=== PATIENT | male | born 1970 | race Hispanic/Latino ===

== ENCOUNTER 2020-10-23 09:42 | Outpatient (CLI) | payer OTHER ==
--- NOTE | 2020-10-23 11:24 | XRay Report ---
Lumbar spine 3 views INDICATION: Back pain FINDINGS: Mild endplate change and facet changes of the lumbar spine. Sacrum and sacroiliac joints ap pear normal. No acute fracture. Signer Name: Artie Angel MD Signed: 10/23/2020 11:20 AM Workstation Name: [id number]
--- NOTE | 2020-10-23 11:41 | XRay Report ---
Bilateral hands 4 views INDICATION: Hand pain FINDINGS: MCP joints and IP joints appear normal. No erosive or destructive changes in either hand. N o acute findings. Signer Name: Artie Angel MD Signed: 10/23/2020 11:36 AM Workstation Name: [id number]
== END 2020-10-23 09:43 | disposition home or self-care (01) ==
LOC: EDBD 09:42 → XRAY 09:42
PROVIDERS: ATTEND Internal Medicine
DX: M19.041 Primary osteoarthritis, right hand (principal); M19.042 Primary osteoarthritis, left hand; M54.9 Dorsalgia, unspecified; M53.82 Other specified dorsopathies, cervical region; M65.30 Trigger finger, unspecified finger
CPT/HCPCS: 72100

== ENCOUNTER 2021-09-08 11:13 | Outpatient (CLI) | payer OTHER ==
--- NOTE | 2021-09-08 13:11 | XRay Report ---
XR spine lumbosacral 2-3V, XR spine thoracic 2V INDICATION / CLINICAL INFORMATION: Z02.71 ENCOUNTER FOR DISABILITY DETERMINATION. COMPARISON: 10/23/2020 FINDINGS: Thoracic spine: Mild right convex curvature of the thoracic spine. Alignment is normal. Moderate mult ilevel discogenic degenerative changes throughout the thoracic spine. Mild stable anterior wedging of T12. Vertebral body heights are otherwise preserved. There is no evidence of acute fracture. Soft ti ssues are unremarkable. Visualized lungs are clear. Lumbar spine: Lumbar spinal alignment is normal. Vertebral body heights are maintained. No evidence o f fracture. Scattered discogenic degenerative changes throughout the lumbar spine with mild disc spac e height loss at L5-S1. There is [id number] lower lumbar facet arthropathy. IMPRESSION: Multilevel thoracolumbar spondylosis, as above. No evidence of acute process. Signer Name: Shantanu Manzanares MD Signed: 09/08/2021 1:07 PM Workstation Name: [id number]
--- NOTE | 2021-09-08 13:11 | XRay Report ---
XR spine lumbosacral 2-3V, XR spine thoracic 2V INDICATION / CLINICAL INFORMATION: Z02.71 ENCOUNTER FOR DISABILITY DETERMINATION. COMPARISON: 10/23/2020 FINDINGS: Thoracic spine: Mild right convex curvature of the thoracic spine. Alignment is normal. Moderate mult ilevel discogenic degenerative changes throughout the thoracic spine. Mild stable anterior wedging of T12. Vertebral body heights are otherwise preserved. There is no evidence of acute fracture. Soft ti ssues are unremarkable. Visualized lungs are clear. Lumbar spine: Lumbar spinal alignment is normal. Vertebral body heights are maintained. No evidence o f fracture. Scattered discogenic degenerative changes throughout the lumbar spine with mild disc spac e height loss at L5-S1. There is [id number] lower lumbar facet arthropathy. IMPRESSION: Multilevel thoracolumbar spondylosis, as above. No evidence of acute process. Signer Name: Shantanu Manzanares MD Signed: 09/08/2021 1:07 PM Workstation Name: [id number]
== END 2021-09-08 11:14 | disposition home or self-care (01) ==
LOC: XRAY 11:13
PROVIDERS: ATTEND Internal Medicine
DX: M47.815 Spondylosis without myelopathy or radiculopathy, thoracolumbar region (principal)
CPT/HCPCS: 72070; 72100